=== PATIENT | male | born 1940 | race Caucasian/White ===

== ENCOUNTER 2018-06-14 19:33 | Inpatient (IN) ==
--- NOTE | 2018-06-14 20:09 | Diag Imaging Result Doc PS360 ---
CHEST-2 VIEWS - 06/14/2018 INDICATION: SOB COMPARISON: 10/22/2017 FINDINGS: The lungs are normally expanded and clear. Heart size and mediastinal contours are normal. No pneumothorax or pleural effusion. Stable sternotomy wires. IMPRESSION: Negative exam. Electronically signed by Neo Maxwell 06/14/2018 8:07 PM
[2018-06-14 20:15] LABS: BASO# 0.02 X1000 (0.0-0.2); BASO% 0.2 % (0.0-0.8); EOS# 0.01 X1000 (0.0-0.7); EOS% 0.1 % (0.0-10.0); HEMATOCRIT 47.6 % (42.0-52.0); HEMOGLOBIN 16.7 g/dL (14.0-18.0); IMM GRAN# 0.25 X1000 (0.0-0.04); IMM GRAN% 2.4 % (0.0-0.5); LYMPH# 1.01 X1000 (1.2-3.4); LYMPH% 9.5 % (20.5-51.1); MCHC 35.1 g/dL (33-37); MCV 91.2 FL (81-99); MONO# 0.87 X1000 (0.11-0.59); MONO% 8.2 % (1.7-9.3); MPV 10.3 FL (7.4-10.4); NEUT# 8.45 X1000 (1.4-6.5); NEUT% 79.6 % (42.2-75.2); PLT 173 X1000 (130-400); RBC 5.22 XMIL (4.7-6.1); RDW 13.8 % (11.5-14.5); WBC 10.61 X1000 (4.8-10.8)
[2018-06-14 20:23] LABS: INR 0.98; PROTIME 13.8 Seconds (11.0-16.0)
[2018-06-14 20:31] LABS: AGAP 15; BUN 19 mg/dL (8-22); CALCIUM 9.1 mg/dL (8.8-10.2); CHLORIDE 99 mmol/L (98-107); COSMO 293; CREATININE 1.1 mg/dL (0.7-1.2); ESTIMATED GFR > 60; GLUCOSE 331 mg/dL (70-104); POTASSIUM 3.6 mmol/L (3.5-5.1); SODIUM 139 mmol/L (136-145); TCO2 25 mmol/L (25-35)
[2018-06-14 20:34] LABS: D-DIMER 6.46 ug/mLFEU (0.0-0.52)
[2018-06-14] MEDS ORDERED: LOVENOX 1 MG/KG SUBQ ONE (20:40)
--- NOTE | 2018-06-14 20:40 | PROVIDER DOCUMENTATION ---
HPI-General Adult - General Chief Complaint: Edema Stated Complaint: POSS BLOOD CLOT RIGHT LEG Time Seen by Provider: 06/14/18 19:49 Source: patient Allergies/Adverse Reactions: Patient Allergies Allergy/AdvReac Type Severity Reaction Status Date / Time sulfamethoxazole Allergy Unknown Unknown Verified 06/14/18 21:04 [From Bactrim] trimethoprim [From Bactrim] Allergy Unknown Unknown Verified 06/14/18 21:04 Home Medications: Home Medication List Medication Instructions Recorded Confirmed Last Taken Type Finasteride [Proscar] 5 mg PO DAILY 02/12/16 06/14/18 06/13/18 History ATORVAstatin [Lipitor] 20 mg PO DAILY 09/02/16 06/14/18 06/14/18 08:30 History Losartan/Hydrochlorothiazide 1 ea PO DAILY 06/14/18 06/14/18 06/14/18 13:00 History [Hyzaar 100-12.5 Tablet] Prednisone 10 mg PO BID 06/14/18 06/14/18 06/14/18 08:30 History Sitagliptin Phos/Metformin HCl 1 ea PO BID 06/14/18 06/14/18 06/14/18 08:30 History [Janumet 50-1,000 mg Tablet] Tamsulosin [Flomax] 0.4 mg PO BID 06/14/18 06/14/18 06/14/18 08:30 History - History of Present Illness -Gen Adult Nature of Presenting Problems: Patient is a 77yo M who presents w/ c/o R leg swelling and redness that began 2 days ago. Patient reports he is concerned about a blood clot. Also reports SOB x "a few weeks." Also reports a wound to his anterior R lateral carmona for "a few weeks." Patient reports he is a diabetic. +1 R dorsalis pedis pulse and +2 pedal edema. Denies hx of blood clots. Denies fever/chills, cough, or CP. Location of Pain/Injury: reports: lower extremity Pain Radiation: reports: no radiation Quality of Pain: reports: throbbing Severity: reports: mild Onset/Duration: reports: 2 days ago Timing: reports: still present Context/Activities at Onset: reports: none Modifying Factors: improves with: nothing Associated Symptoms: reports: denies symptoms Similar Symptoms Previously?: No Recently seen or treated by another doctor?: No Review of Systems - Adult - REVIEW OF SYSTEMS - ADULT Constitutional: denies: chills, fever Eyes: reports: no symptoms reported Ears, Nose, Mouth & Throat: reports: no symptoms reported Cardiovascular: reports: edema (R pedal edema). denies: chest pain, palpitations, syncope Respiratory: reports: dyspnea on exertion, shortness of breath. denies: cough, wheezing Gastrointestinal: reports: no symptoms reported Genitourinary: reports: no symptoms reported Musculoskeletal: reports: no symptoms reported Integumentary: reports: no symptoms reported Neurological: reports: no symptoms reported Psychiatric: reports: no symptoms reported Endocrine: reports: no symptoms reported All Other Systems: Reviewed and Negative Past History - Adult - PAST MEDICAL HISTORY-ADULT Review of Records: reports: Old Records Reviewed, Nursing Assessment Review, Medications Reviewed, Social history reviewed & non-contributory. Major Childhood Illnesses: reports: denies history Cardiovascular: reports: HTN Respiratory: reports: denies history Gastrointestinal: reports: denies history Obstetrical/Gynecological: reports: denies history Genitourinary: reports: denies history Musculoskeletal: reports: denies history Neurological: reports: denies history Endocrine/Immune: reports: Diabetes Other Conditions: reports: denies history - PRIOR SURGERIES/PROCEDURES Surgical/Procedure History: reports: appendectomy, CABG, other (kidney) - IMMUNIZATION STATUS Childhood Immunizations: See Nurse Assessment Flu Vaccine: See Nurse Assessment - FAMILY HISTORY Family History: reviewed, not pertinent - SOCIAL HISTORY Smoking: non-smoker Physical Exam-General - PHYSICAL EXAM-ADULT Initial Vital Signs Reviewed: Yes - CONSTITUTIONAL General Appearance: appears well, alert, mild distress - EYES Eyes: PERRL/EOMI, pink conjunctivae - HEAD, EARS, NOSE, MOUTH & THROAT HENMT: normocephalic/atraumatic, moist mucous membranes - NECK Neck: full range of motion, supple, normal inspection - RESPIRATORY Respiratory: chest non-tender, lungs clear, normal breath sounds, no pleuratic chest pain, no respiratory distress, no accessory muscle use. negative: crackles, rales, rhonchi, stridor, wheezing, retractions, splinting - CARDIOVASCULAR Cardiovascular: no gallop, tachycardia (102). negative: no edema (R pedal edema) - MUSCULOSKELETAL Back Exam: normal inspection Extremity: normal gait, erythema (R anterior carmona), pedal edema (R +2), swelling (R lower leg/foot) Peripheral Pulses: dorsalis-pedis (R): 1+ - SKIN Integumentary: normal color, warm/dry, erythema (R carmona) - NEUROLOGIC Neurologic: grossly normal - PSYCHIATRIC Psych/Mental Status: normal mood/affect, normal thought content, normal thought process, oriented x 3 Progress - PLAN OF CARE/RESULTS Progress/Plan/Lab Results: Vital Signs - 8 hr 06/14/18 19:40 Temperature 97.6 F Pulse Rate 102 H Respiratory Rate 17 Blood Pressure 139/84 O2 Sat by Pulse Oximetry 96 Laboratory Results - last 24 hr 06/14/18 06/14/18 06/14/18 19:59 19:59 19:59 WBC 10.61 RBC 5.22 Hgb 16.7 Hct 47.6 MCV 91.2 MCH 32.0 H MCHC 35.1 RDW Std Deviation 13.8 Plt Count 173 MPV 10.3 Immature Gran % (Auto) 2.4 H Neut % (Auto) 79.6 H Lymph % (Auto) 9.[address] [place] % (Auto) 8.2 Eos % (Auto) 0.1 Baso % (Auto) 0.2 Immature Gran # (Auto) 0.25 H Neut # (Auto) 8.45 H Lymph # (Auto) 1.[address] [place] # (Auto) 0.87 H Eos # (Auto) 0.01 Baso # (Auto) 0.02 PT 13.8 INR 0.98 PTT (Actin FS) 25.0 Sodium 139 Potassium 3.6 Chloride 99 Carbon Dioxide 25 Anion Gap 15 BUN 19 Creatinine 1.1 Estimated GFR/1.73 m2 > 60 BUN/Creatinine Ratio 17 Glucose 331 H Calculated Osmolality 293 Calcium 9.1 Orders Category Date Time Status Saline Loc NOW Care 06/14/18 19:49 Active CHEST-2 VIEWS [RAD] Stat Exams 06/14/18 19:50 Completed BASIC METABOLIC PANEL [CHEM] Stat Lab 06/14/18 19:59 Completed CBC WITH ELECTRONIC DIFF [HEME] Stat Lab 06/14/18 19:59 Completed D-DIMER [COAG] Stat Lab 06/14/18 19:59 Results PROTIME WITH INR [COAG] Stat Lab 06/14/18 19:59 Results PTT [COAG] Stat Lab 06/14/18 19:59 Results EKG [EKG] Stat Ther 06/14/18 19:50 Ordered Result Diagrams: 06/14/18 19:59 06/14/18 19:59 - XRAY 1 XRAY: Bilateral XRAY Study: Chest Impression: See EMR Report ([facility] [address], [address], [place] [address] Department of Imaging Patient: GINA LEWIS Date: 06/14/18MR#: [id number] : 1940DM Status: PRE ERAcct#: [id number] Age/Sex: 77/MRoom/Bed: Loc: ED Ordering Physician: Aide Culp Family Physician: Duke Gonzalez MD Reason for Procedure: SOB Signed CHEST-2 VIEWS - 06/14/2018 INDICATION: SOB COMPARISON: 10/22/2017 FINDINGS: The lungs are normally expanded and clear. Heart size and mediastinal contours are normal. No pneumothorax or pleural effusion. Stable sternotomy wires. IMPRESSION: Negative exam. Electronically signed by Neo Maxwell 06/14/2018 8:07 PM 06/14/182006 Interpreting Physician: Neo Maxwell MD Dictated Date/Time: 06/14/182006 cc: Aide Culp; Duke Gonzalez MD) - CT/MRI 1 CT Study: Angiogram ([facility] [address], [address], [place] [address] Department of Imaging Patient: GINA LEWIS Date: 06/14/18MR#: [id number] : 1940DM Status: REG ERAcct#: [id number] Age/Sex: 77/MRoom/Bed: Loc: ED Ordering Physician: Aide Culp Family Physician: Duke Gonzalez MD Reason for Procedure: Femoral blood clot Signed CT ANGIOGRM PULMONARY ARTERIES - 06/14/2018 INDICATION: Femoral blood clot TECHNIQUE: Axial CT images were obtained after administering intravenous contrast. Coronal MIP images were generated. COMPARISON: None FINDINGS: There are a few scattered pulmonary emboli bilaterally in mainly segmental pulmonary arteries. There are CABG changes. Heart size is normal with no pericardial effusion. Upper abdominal images are unremarkable. The lungs are grossly clear. Bony structures are intact. IMPRESSION: Several bilateral pulmonary emboli. This report was discussed with RT Cheryl on 06/14/2018 at 10:00 PM and was readback. This exam was performed using automated exposure control, adjustment of mA or kV according to patient size, and/or use of iterative reconstruction technique Electronically signed by Neo Maxwell 06/14/2018 10:07 PM 06/14/182206 Interpreting Physician: Neo Maxwell MD Dict ated Date/Time: 06/14/182202 cc: Aide Culp; Duke Gonzalez MD), Thorax CT Results: See note - CONSULTS/PCP/HOSPITALIST Notification #1 *Consult/PCP/Hospitalist*: Dr. Young Time Discussed: 21:26 Reason/Comments: Admit Consult Disposition: Will see in ED (After CTA results, he will come see the patient.), Admit - CHANGE OF SHIFT REPORT (ED Provider) 1 Report Given and Care Transferred to:: [facility] Time of Transfer: 20:58 Items Pending: CT/MRI Results Departure - Departure Date of Disposition Decision: 06/14/18 Time of Disposition Decision: 21:27 DIAGNOSIS: Hyperglycemia DVT (deep venous thrombosis) Qualifiers: DVT location: lower extremity Affected thrombotic vein of extremity: femoral Ch ronicity: acute Laterality: right Qualified Code(s): I82.411 - Acute embolism and thrombosis of right femoral vein Pulmonary emboli Qualifiers: Pulmonary embolism type: unspecified Chronicity: acute Acute cor pulmonale presence: without acute cor pulmonale Qualified Code(s): I26.99 - Other pulmonary embolism without acute cor pulmonale Disposition: ADMITTED INPATIENT 09 Certified Medical Emergency: Emergent Condition: Serious Referrals and Follow-Ups: Duke Gonzalez MD [Primary Care Provider] - - Critical Care Note This patient required my direct & personal management of CC.: No Attestation - Physician/ CHLOE Attestation Patient care was provided by Advanced Practice Provider:: Yes Advanced Practice Provider:: Aide Culp Advanced Practice Provider documentation review:: The Mid-level provider documentation, treatment plan and medical decision making was reviewed by the physician who agrees with all treatment and medical decision making by the MLP. The physician spent face to face time with patient:: No Advanced Practice Provider documentation review:: Supervising physician onsite and consulted in the evaluation and care of this patient. The physician did not have a face to face encounter with the patient.
--- NOTE | 2018-06-14 20:52 | ED EKG INTERP ---
This chart was entered by Jamarcus Hernandez Scribe, acting as scribe for Rosalva Jackson MD. EKG Interpretation - EKG Time of EKG reading by physician:: 20:15 EKG Read and Signed by:: Rosalva Jackson EKG Interpretation (*Must complete 3 of following elements*): Abnormal Rate: 90 Rhythm: NSR Comments: anterior infarct, age undetermined Attestation - Physician/ CHLOE Attestation Patient care was provided by Advanced Practice Provider:: Yes Advanced Practice Provider:: Aide Culp Advanced Practice Provider documentation review:: The Mid-level provider documentation, treatment plan and medical decision making was reviewed by the physician who agrees with all treatment and medical decision making by the MLP. The physician spent face to face time with patient:: No Advanced Practice Provider documentation review:: Supervising physician onsite and consulted in the evaluation and care of this patient. The physician did not have a face to face encounter with the patient. This chart was documented by the indicated scribe, (Jamarcus Hernandez Scribe) and accurately reflects the services I performed and decisions made by me, Rosalva Jackson MD, as attested by the provider's signature.
[2018-06-14] MEDS ORDERED: LEVAQUIN 500 MG/D5W 500 MG/100 ML IVPB IV ONE (20:56)
[2018-06-14] MEDS ORDERED: LOVENOX SUBQ ONE (21:45)
--- NOTE | 2018-06-14 22:10 | Diag Imaging Result Doc PS360 ---
CT ANGIOGRM PULMONARY ARTERIES - 06/14/2018 INDICATION: Femoral blood clot TECHNIQUE: Axial CT images were obtained after administering intravenous contrast. Coronal MIP images were generated. COMPARISON: None FINDINGS: There are a few scattered pulmonary emboli bilaterally in mainly segmental pulmonary arteries. There are CABG changes. Heart size is normal with no pericardial effusion. Upper abdominal images are unremarkable. The lungs are grossly clear. Bony structures are intact. IMPRESSION: Several bilateral pulmonary emboli. This report was discussed with RT Cheryl on 06/14/2018 at 10:00 PM and was readback. This exam was performed using automated exposure control, adjustment of mA or kV according to patient size, and/or use of iterative reconstruction technique Electronically signed by Neo Maxwell 06/14/2018 10:07 PM
[2018-06-14] MEDS: LOVENOX 1 MG/KG SUBQ SCH (22:30)
--- NOTE | 2018-06-14 22:57 | HISTORY AND PHYSICAL ---
PRIMARY CARE PHYSICIAN: Dr. Leandro Garcia. CHIEF COMPLAINT: Right lower extremity edema and shortness of breath x2 weeks. HISTORY OF PRESENTING ILLNESS: A 77-year-old male with a history of diabetes mellitus type 2, rheumatoid arthritis, coronary disease, and hypertension who presented to emergency department with 2 weeks history of having shortness of breath. The patient states that over the past several days his right lower extremity was getting enlarged and painful. He was evaluated in the emergency department. He had venous Dopplers, which did show a right DVT. The patient also had imaging that did show bilateral pulmonary embolism. Due to his presenting symptoms, the patient will require admission for further management. At the time of my examination, patient denied any headache, fever, chills, nausea, vomiting, diarrhea, hemoptysis, melena, weight changes, but complained of shortness of breath and left lower extremity pain. PAST MEDICAL HISTORY: Include diabetes mellitus type 2, rheumatoid arthritis, coronary disease, hypertension. PAST SURGICAL HISTORY: Coronary bypass, appendectomy, right knee surgery. ALLERGIES: Sulfur and trimethoprim. CURRENT MEDICATIONS: Include Lipitor 20 mg p.o. daily, Proscar 5 mg p.o. daily, Hyzaar 100/12.5 mg 1 p.o. daily, prednisone 10 mg p.o. b.i.d., Janumet 50,000 mg 1 p.o. b.i.d., Flomax 0.4 mg p.o. b.i.d. SOCIAL HISTORY: No history of smoking. Admits to social alcohol use. Denies any illicit drug use. FAMILY HISTORY: No history of coronary disease. REVIEW OF SYSTEMS: Fourteen point review of systems is as in HPI. Other systems negative. PHYSICAL EXAMINATION: GENERAL: Cooperative, friendly male. He is resting comfortably. VITAL SIGNS: Temperature 97.6 degrees, pulse 102, respirations 17, blood pressure 139/84. HEENT: Atraumatic, normocephalic. Extraocular movements intact. PERRLA. NECK: No masses. CHEST: Clear to auscultation. CARDIOVASCULAR: Regular rate and rhythm. ABDOMEN: Soft. Positive bowel sounds. EXTREMITIES: RLE tender and swollen NEUROLOGIC: He is awake, alert, oriented x3. GENITOURINARY: No bladder distention. SKIN: Warm. LABORATORIES AND STUDIES: Sodium 139, potassium 3.6, chloride 99, CO2 25, BUN is 19, creatinine is 1.1, glucose is 331. WBCs 10.61, hemoglobin 16.7, hematocrit 47.6. Platelets 173,000. Pulmonary arteriogram shows several bilateral pulmonary emboli. ASSESSMENT: A 77-year-old male with a history of diabetes mellitus type 2, coronary disease, hypertension had presented to emergency department with 2-week history of intermittent shortness of breath. The patient also was having right lower extremity edema and pain. He was evaluated in the emergency department, and he had imaging done, which did show a DVT and bilateral pulmonary emboli. Subsequently, he will require admission for further management. 1. Bilateral pulmonary embolism. 2. Right deep venous thrombosis. 3. Diabetes mellitus type 2. 4. Hypertension. PLAN: 1. We will admit patient to medical floor with telemetry. 2. The patient was already started on anticoagulation with Lovenox in the ER. 3. We will discuss with patient what oral regimen to start on in the morning. 4. Monitor blood glucose closely and put patient on sliding scale insulin regimen. 5. Monitor blood pressure. Resume antihypertensive agent. 6. We will continue to follow and reassess, make further recommendation based on patient's clinical course. cc: Quentin Young MD MTDD
[2018-06-15 06:11] LABS: BASO# 0.02 X1000 (0.0-0.2); BASO% 0.2 % (0.0-0.8); EOS# 0.06 X1000 (0.0-0.7); EOS% 0.7 % (0.0-10.0); HEMATOCRIT 43.4 % (42.0-52.0); HEMOGLOBIN 15.2 g/dL (14.0-18.0); IMM GRAN% 2.5 % (0.0-0.5); LYMPH# 1.75 X1000 (1.2-3.4); LYMPH% 21.5 % (20.5-51.1); MCH 32.8 PG (27-31); MCV 93.5 FL (81-99); MONO# 0.75 X1000 (0.11-0.59); MONO% 9.2 % (1.7-9.3); MPV 10.4 FL (7.4-10.4); NEUT# 5.36 X1000 (1.4-6.5); NEUT% 65.9 % (42.2-75.2); PLT 136 X1000 (130-400); RBC 4.64 XMIL (4.7-6.1); WBC 8.14 X1000 (4.8-10.8)
[2018-06-15 06:19] LABS: AGAP 12; BUN 20 mg/dL (8-22); CALCIUM 8.5 mg/dL (8.8-10.2); CHLORIDE 102 mmol/L (98-107); COSMO 294; CREATININE 0.9 mg/dL (0.7-1.2); ESTIMATED GFR > 60; GLUCOSE 246 mg/dL (70-104); SODIUM 142 mmol/L (136-145); TCO2 28 mmol/L (25-35)
[2018-06-15 07:12] LABS: URINE SOURCE CLEAN CATCH
[2018-06-15 07:27] LABS: BILIRUBIN URINE NEGATIVE (NEGATIVE); BLOOD URINE NEGATIVE (NEGATIVE); COLOR YELLOW; GLUCOSE URINE >1000 mg/dL (NEGATIVE); KETONE URINE NEGATIVE (NEGATIVE); LEUKOCYTES URINE NEGATIVE (NEGATIVE); NITRITE URINE NEGATIVE (NEGATIVE); PH URINE 5.5; PROTEIN URINE NEGATIVE (NEGATIVE); SP GRAVITY URINE 1.032; TURBIDITY URINE CLEAR (CLEAR); UROBILINOGEN URINE NORMAL (NORMAL)
[2018-06-15 07:28] LABS: UR EPITHELIAL CELLS <10 /HPF (<10); URINE BACTERIA NEGATIVE /HPF; URINE RBC <10 /HPF (<10); URINE WBC <10 /HPF (<10)
--- NOTE | 2018-06-15 07:32 | EKG Report ---
Test Performed on : 06/14/2018 8:15:11 PM Test Reason : SOB Blood Pressure : / mmHG Vent. Rate : 090 BPM Atrial Rate : 090 BPM P-R Int : 166 ms QRS Dur : 098 ms QT Int : 362 ms P-R-T Axes : 034 -01 038 degrees QTc Int : 442 ms Normal sinus rhythm. Anterior infarct (cited on or before 22-OCT-2017) Abnormal ECG When compared with ECG of 22-OCT-2017 16:13, Questionable change in initial forces of Anterior leads Unconfirmed Result
[2018-06-15] MEDS: HYZAAR 100/12.5 MG TAB PO SCH (08:54)
[2018-06-15] MEDS: LIPITOR PO SCH (08:54)
[2018-06-15] MEDS: GLUCOPHAGE PO SCH ×2 (08:54→22:07)
[2018-06-15] MEDS: PREDNISONE PO SCH ×2 (08:54→22:08)
[2018-06-15] MEDS: PROSCAR PO SCH (08:54)
[2018-06-15] MEDS: JANUVIA PO SCH ×2 (08:54→22:08)
[2018-06-15] MEDS: FLOMAX PO SCH ×2 (08:54→22:08)
[2018-06-15] MEDS: LOVENOX SUBQ SCH ×3 (08:54→22:08)
--- NOTE | 2018-06-15 09:27 | PROGRESS NOTE ---
DATE: 06/15/2018 SUBJECTIVE: Mr. Jacinto was admitted late last night on 06/14/2018 complaining of right lower extremity edema and shortness of breath for a couple of weeks. He was found to have DVT and pulmonary thromboembolus. He has a history of coronary artery disease, rheumatoid arthritis, diabetes mellitus type 2 and hypertension. OBJECTIVE: On exam today, he was awake and alert, comfortable breathing about the same. He is comfortable at rest with dyspnea with any exertion. Temperature 97.7 degrees, pulse 70, respirations 15, and blood pressure 115/66. Pupils are equal and round. Lungs are clear anterolateral. Cardiovascular exam with regular rhythm and rate without murmur or S3. Abdomen is soft. Skin is warm and dry. LABORATORY: White count 8140, hematocrit is 43, and platelet count 136,000. Sodium 142, potassium 3.0, chloride 102, BUN 20, and creatinine 0.9. Urinalysis unremarkable. His chest x- ray from yesterday, negative exam. Lungs are normally expanded and clear. Heart size and mediastinal contours are normal. No pneumothorax or pleural effusion. Pulmonary arteriogram with several bilateral pulmonary emboli. ASSESSMENT AND PLAN: 1. DVT. Multiple pulmonary emboli. Continue anticoagulant. He will need to be on long-term anticoagulant. He will be here 3 days. Minimize getting up. He does want to get up and go to the bathroom, and refuses to use a bed cline. 2. Deep right venous thrombosis. 3. Diabetes mellitus type 2. Follow sugars. 4. Hypertension. 5. Coronary artery disease. 6. He has had adrenal insufficiency, and has been on a cortisone. He is on prednisone 10 mg b.i.d. He is on Lovenox 90 mg subcu q.12h, Proscar 5 mg a day, Lipitor 20 mg a day, and Januvia 50 mg b.i.d. He is getting his metformin 1000 mg. b.i.d. cc: Duke Gonzalez MD
[2018-06-16] MEDS: MELATONIN PO SCH ×2 (00:34→20:53)
[2018-06-16] MEDS: LIPITOR PO SCH (08:56)
[2018-06-16] MEDS: GLUCOPHAGE PO SCH ×2 (08:56→20:53)
[2018-06-16] MEDS: HYZAAR 100/12.5 MG TAB PO SCH (08:56)
[2018-06-16] MEDS: PROSCAR PO SCH (08:56)
[2018-06-16] MEDS: PREDNISONE PO SCH ×2 (08:56→20:53)
[2018-06-16] MEDS: FLOMAX PO SCH ×2 (08:56→20:53)
[2018-06-16] MEDS: JANUVIA PO SCH ×2 (08:56→20:53)
[2018-06-16] MEDS: LOVENOX SUBQ SCH ×3 (08:59→23:54)
--- NOTE | 2018-06-16 09:08 | PROGRESS NOTE ---
DATE: 06/16/2018 SUBJECTIVE: Mr. Jacinto had a good night. He is comfortable at rest. His right leg swelling has gone down. He is eating well. Bowels are moving. OBJECTIVE: Vital Signs: Temperature 97.8 degrees, pulse 76, respirations 15, blood pressure 99/50. Eyes: Pupils are equal and round. Lungs: Clear in all lung arboleda. Cardiovascular exam: Regular rhythm and rate without murmur or S3. Abdomen: Soft. Skin: Warm and dry. Extremities: He has chronic venous stasis discoloration of both legs. Trace edema in both legs, but appears to be symmetrical, and areas of ecchymosis on his arms and legs that are chronic. His blood sugars: The last three are 195, 323 and 211. ASSESSMENT/PLAN: 1. Deep vein thrombosis, bilateral multiple small pulmonary thromboembolisms. Continue his Lovenox. He will probably be here another 2 days. I want to keep him in the bed and continue anticoagulation. Plan is probably to put him on Xarelto on discharge. 2. Diabetes mellitus type 2. He is on Januvia 50 mg twice a day. He is on Flomax 0.4 mg twice daily, metformin 1000 mg twice daily, Proscar 5 mg a day, Lovenox 90 mg subcutaneous every 12 hours, Lipitor 20 mg daily, melatonin 10 mg a day. 3. Benign prostatic hypertrophy. 4. Underlying coronary artery disease. Review of his echocardiogram on 08/17/2017: He had good left ventricular function, ejection fraction 60%. 5. 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 He is on prednisone 10 mg twice daily as he did have symptomatic adrenal insufficiency. Review of his orders: Melatonin 10 mg at bedtime, Lipitor 20 mg daily, Lovenox 90 mg subcutaneous q. 12 hours, Proscar 5 mg a day, Hyzaar 1 a day, metformin 1000 mg b.i.d., prednisone 10 mg twice a day, Januvia 50 mg b.i.d. and Flomax 0.4 mg b.i.d. I will go up on the Januvia to 100 mg twice a day. cc: Duke Gonzalez MD
[2018-06-17] MEDS: LIPITOR PO SCH (09:21)
[2018-06-17] MEDS: LOVENOX SUBQ SCH ×2 (09:21→22:00)
[2018-06-17] MEDS: PROSCAR PO SCH (09:21)
[2018-06-17] MEDS: HYZAAR 100/12.5 MG TAB PO SCH (09:21)
[2018-06-17] MEDS: GLUCOPHAGE PO SCH ×2 (09:21→20:19)
[2018-06-17] MEDS: FLOMAX PO SCH ×2 (09:21→20:20)
[2018-06-17] MEDS: PREDNISONE PO SCH ×2 (09:21→20:19)
[2018-06-17] MEDS: JANUVIA PO SCH ×2 (09:22→20:19)
--- NOTE | 2018-06-17 09:50 | PROGRESS NOTE ---
DATE: 06/17/2018 SUBJECTIVE: Mr. Jacinto is feeling much better. He would like to get up and get a shower. Breathing is comfortable, particularly at rest. Of course, he has not done anything to exert himself. OBJECTIVE: Vital Signs: Temperature 98.2 degrees, pulse 68, respirations 18, blood pressure 114/69. Eyes: Pupils are equal and round. Lungs: Clear in all lung arboleda. Cardiovascular exam: Regular rhythm and rate without murmur or S3. Abdomen: Soft. Skin: Skin is warm and dry. : Urine output is 1200 mL. Blood sugar 211, 222 and 239. ASSESSMENT AND PLAN: 1. Deep venous thrombosis, bilateral multiple small pulmonary thromboemboli. Continue Lovenox. I think he will be on pace to go home tomorrow. Plan to start him on Xarelto. We will probably give him 15 mg twice a day for 21 days, and then go to 20 mg daily. 2. Diabetes mellitus type 2. I did go up on his Januvia from 50 to 100 mg twice a day. Blood sugars still running around 200s, so continue pattern sugars. 3. Benign prostatic hypertrophy. 4. History of underlying coronary artery disease. Echocardiogram 08/17/2017 showed good left ventricular function. 5. Adrenal insufficiency. Continue his daily prednisone. Looking at blood sugars; last 3 are 222, 282 and 239. cc: Duke Gonzalez MD
[2018-06-17] MEDS: MELATONIN PO SCH ×2 (20:19→20:20)
--- NOTE | 2018-06-18 07:10 | DISCHARGE SUMMARY ---
ADMISSION DATE: 06/14/2018 DISCHARGE DATE: 06/18/2018 HISTORY OF PRESENT ILLNESS: He presented on 06/14/2018 complaining of right lower extremity edema and shortness of breath for a couple weeks. A 77-year-old with a history of diabetes mellitus type 2, rheumatoid arthritis, coronary artery disease, hypertension. Presented to the emergency room with a 2 week history of having shortness of breath. States that for the past several days, his right lower extremity in his calf became enlarged and painful. HOSPITAL COURSE: The patient was evaluated in the emergency department. Had venous Dopplers that showed right DVT. Had CT angiogram which showed bilateral pulmonary embolism. He was admitted with pulmonary embolism. He was put on Lovenox. Plan was to keep him for 3 days and then convert him to Xarelto. He did not have a saddle embolus but he had bilateral embolisms, both sides, with symptomatic dyspnea. He tolerated this well. The right leg did go down in swelling and I did adjust his Cymbalta, for his sugar. He is on Lipitor 20 mg a day, Proscar 5 mg a day, Hyzaar 100/12.5 daily, melatonin 10 mg at bedtime, Glucophage 1000 mg b.i.d., prednisone 10 mg b.i.d., Januvia 100 mg b.i.d., and Flomax 0.4 mg b.i.d. I will put him on Xarelto 15 mg twice a day for 21 days and then 20 mg a day following that. Follow back in my office in a couple weeks. cc: Duke Gonzalez MD
[2018-06-18] MEDS: LIPITOR PO SCH (09:18)
[2018-06-18] MEDS: GLUCOPHAGE PO SCH (09:18)
[2018-06-18] MEDS: PROSCAR PO SCH (09:18)
[2018-06-18] MEDS: FLOMAX PO SCH (09:18)
[2018-06-18] MEDS: LOVENOX SUBQ SCH (09:19)
[2018-06-18] MEDS: HYZAAR 100/12.5 MG TAB PO SCH (09:19)
[2018-06-18] MEDS: PREDNISONE PO SCH (09:19)
[2018-06-18] MEDS: JANUVIA PO SCH (09:19)
[2018-06-18 15:36] VITALS: BP 125/64
--- NOTE | 2018-06-18 16:03 | Extremity Venous Study ---
PROCEDURE NAME: Venous U/S Right Leg - 06/14/2018 DYE COLORIST FORMULATOR: Alex. REQUESTING PHYSICIAN: Emiliano MCGINNIS. INDICATIONS: Swelling and pain. FINDINGS: In the right lower extremity, there is an extensive DVT starting at the common femoral vein and extending distally. There is some mobile component to the common femoral vein, although there is diminished flow. There is patency in the common femoral vein but there is significantly diminished and even absent flow noted more distally at the superficial femoral and popliteal location. SUMMARY: Extensive deep venous thrombosis in the right lower extremity. cc: MD Duke Chan MD
== END 2018-06-18 16:22 | disposition home or self-care (01) | DRG 176 ==
LOC: ED 19:33 → SUATTDRO 23:01 → EDIPHOLD 23:01 → 3S 06-15 01:39
PROVIDERS: ADMIT Emergency Medicine; ATTEND Emergency Medicine
CPT/HCPCS: 71020; 71046; 71275; 80048; 81001; 82948; 85025; 85379; 85610; 85730; 93005; 93971; 96372; 99285; A9270; J1650; J7506; J7512; Q9967; S0138; XXXXX

== ENCOUNTER 2018-08-22 15:19 | Observation (INO) ==
[2018-08-22] MEDS ORDERED: TYLENOL PO PRN (17:16)
[2018-08-22] MEDS ORDERED: ZOFRAN IV PRN (17:16)
[2018-08-22 17:38] LABS: BASO# 0.01 X1000 (0.0-0.2); BASO% 0.1 % (0.0-0.8); EOS# 0.02 X1000 (0.0-0.7); EOS% 0.2 % (0.0-10.0); IMM GRAN# 0.15 X1000 (0.0-0.04); IMM GRAN% 1.5 % (0.0-0.5); LYMPH# 1.28 X1000 (1.2-3.4); LYMPH% 12.8 % (20.5-51.1); MCHC 34.9 g/dL (33-37); MCV 94.5 FL (81-99); MONO# 0.98 X1000 (0.11-0.59); MONO% 9.8 % (1.7-9.3); NEUT# 7.54 X1000 (1.4-6.5); NEUT% 75.6 % (42.2-75.2); PLT 179 X1000 (130-400); RBC 4.55 XMIL (4.7-6.1); RDW 13.3 % (11.5-14.5); WBC 9.98 X1000 (4.8-10.8)
--- NOTE | 2018-08-22 17:51 | HISTORY AND PHYSICAL ---
HISTORY OF PRESENT ILLNESS: He started having swelling 3 or 4 days ago in his right lower leg, intense redness and pain with some bullae and some weeping. He has really circumferential redness and irritation and tenderness around that leg consistent with cellulitis. So, admitted him to the hospital. PAST MEDICAL HISTORY: 1. Diabetes mellitus type 2. His sugars of late have been running fairly high. 2. Rheumatoid arthritis. 3. Coronary artery disease. 4. He has had adrenal insufficiency. PAST SURGICAL HISTORY: 1. Status post coronary bypass. 2. Appendectomy. 3. Right knee surgery. ALLERGIES: Sulfa and trimethoprim. SOCIAL HISTORY: No history of smoking. Rare, social alcohol at this point. He has cut back on drinking quite a bit. Denies any illicit drug use. FAMILY HISTORY: No history of coronary artery disease. I think there is a history of hypertension. REVIEW OF SYSTEMS: General: No weight gain or loss. No fever or chills, although he has felt subjective fever and some rigors last night. HEENT: No change in visual or hearing acuity. Respiratory: No increased work of breathing or dyspnea. Cardiovascular: No chest pain or tachy palpitation. GI and : No gross hematuria or dysuria. Musculoskeletal/Neurologic: No significant complaints. Endocrinologic/Hematologic: No significant history. Skin: As noted above, right lower extremity appears red and irritated and painful. PHYSICAL EXAMINATION: GENERAL: On presentation, well-developed, well-nourished white male. HEENT: Pupils are equal and round. NECK: Supple without cervical adenopathy or supraclavicular adenopathy. LUNGS: Clear in all lung arboleda. CARDIOVASCULAR: Regular rhythm and rate without murmur or S3. ABDOMEN: Soft, nondistended, nontender. SKIN: Warm and dry. EXTREMITIES: Right leg with edema, bullae about 3 x 6 cm in the posterior lower leg, circumferential erythema, redness, irritation, tenderness in that right leg. No palpable cords. ASSESSMENT AND PLAN: 1. Cellulitis of the lower leg. He has been on Xarelto. I doubt he has a DVT. We will check noninvasive studies of both lower extremities. I am going to put him on broad coverage for gram-negative as well as gram-positive organisms, vancomycin and Zosyn. Will elevate the leg. I do not see any sign of deep tissue infection at this time. 2. Diabetes mellitus type 2. Will follow blood sugars and adjust his regimen. He says his sugars have been running a little high. 3. History of coronary artery disease status post coronary artery bypass graft. Aware. 4. History of rheumatoid arthritis. 5. He has had some adrenal insufficiency, so I have kept him on prednisone and we might be able to taper that down at this point, slowly. cc: Duke Gonzalez MD
[2018-08-22 17:52] LABS: INR 0.98; PROTIME 13.7 Seconds (11.0-16.0)
[2018-08-22 17:53] LABS: PTT 28.7 Seconds (22.3-41.8)
[2018-08-22] MEDS: ZOSYN 3.375 GM in NS 50 ML IV SCH (18:00)
[2018-08-22 18:05] LABS: ALB/GLOB RATIO 1.7; ALBUMIN 3.8 g/dL (3.5-5.0); CALCIUM 9.3 mg/dL (8.8-10.2); CREATININE 1.4 mg/dL (0.7-1.2); MAGNESIUM 1.7 mg/dL (1.5-2.7); POTASSIUM 3.1 mmol/L (3.5-5.1); TOTAL BILIRUBIN 1.58 mg/dL (0.20-1.00); TOTAL PROTEIN 6.1 g/dL (6.3-8.3)
[2018-08-22] MEDS: JANUVIA PO SCH (21:45)
[2018-08-22] MEDS: FLOMAX PO SCH (21:45)
[2018-08-22] MEDS: GLUCOPHAGE PO SCH (21:45)
[2018-08-22] MEDS: PREDNISONE PO SCH (21:45)
[2018-08-22] MEDS: LIPITOR PO SCH (21:45)
[2018-08-23] MEDS: ZOSYN 3.375 GM in NS 50 ML IV SCH ×7 (00:16→23:17)
--- NOTE | 2018-08-23 06:55 | EKG Report ---
Test Performed on : 08/22/2018 5:34:25 PM Test Reason : chest pain Blood Pressure : / mmHG Vent. Rate : 099 BPM Atrial Rate : 099 BPM P-R Int : 162 ms QRS Dur : 102 ms QT Int : 348 ms P-R-T Axes : 048 -09 054 degrees QTc Int : 446 ms Normal sinus rhythm. Normal ECG When compared with ECG of 14-JUN-2018 20:15, Criteria for Anterior infarct are no longer present Confirmed by Jcarlos Meza MD ([id number]) on 08/23/2018 5:47:29 PM
[2018-08-23] MEDS: PROSCAR PO SCH (08:14)
[2018-08-23] MEDS: XARELTO PO SCH (08:14)
[2018-08-23] MEDS: GLUCOPHAGE PO SCH ×2 (08:14→16:01)
[2018-08-23] MEDS: PREDNISONE PO SCH ×2 (08:14→23:18)
[2018-08-23] MEDS: JANUVIA PO SCH ×2 (08:14→23:18)
[2018-08-23] MEDS: FLOMAX PO SCH ×2 (08:14→23:18)
[2018-08-23] MEDS: HYZAAR 100/12.5 MG TAB PO SCH (08:35)
[2018-08-23] MEDS ORDERED: VANCOMYCIN IV PER PHARMACY MISC SCH (10:30)
--- NOTE | 2018-08-23 10:42 | PROGRESS NOTE ---
DATE: 08/23/2018 SUBJECTIVE: Mr. Jacinto's leg is much better. It is a lot softer, less tender on noninvasive study. Still has a little bit of residual clot in the popliteal on the right side, but the proximal clot has resolved. He is feeling better. OBJECTIVE: Vital Signs: Remains afebrile. Pulse 72, respirations 20, blood pressure 110/58. Eyes: Pupils are equal and round. Lungs: Clear in all lung arboleda. Cardiovascular exam: Regular rhythm and rate without murmur or S3. : Urine output is 5600 mL. ASSESSMENT AND PLAN: 1. Right lower extremity pedal edema, underlying deep vein thrombosis which is old and actually improving, and cellulitis which is improved with present antibiotics. We will keep him another 24 hours. I do want to watch his blood sugars and see if we can get them controlled a little better. Renal function looks good. Creatinine 1.4. We will supplement some potassium. 2. History of coronary artery disease status post coronary artery bypass graft. 3. History of benign prostatic hypertrophy. Continue his Proscar 5 mg a day, metformin 1000 mg twice daily, prednisone 10 mg twice daily, Xarelto 20 mg daily, Januvia that I am going to have him on 100 mg twice daily, Flomax 0.4 mg twice daily. I have him on Zosyn 3.375 g daily, and I want to make sure he is on vancomycin as well. cc: Duke Gonzalez MD
--- NOTE | 2018-08-23 11:54 | Diag Imaging Result Doc PS360 ---
CHEST-2 VIEWS - 08/23/2018 INDICATION: Cellulitis COMPARISON: 06/14/2018 FINDINGS: Lung volumes are severely low similar to prior. No infiltrates or edema. No pneumothorax or pleural effusion. Heart size and pulmonary vascularity are normal. Stable sternotomy wires. IMPRESSION: Severely low lung volumes. Electronically signed by Neo Maxwell 08/23/2018 11:51 AM
[2018-08-23] MEDS ORDERED: VANCOMYCIN 2 GM in NS 500 ML IV ONE (12:00)
[2018-08-23] MEDS: LIPITOR PO SCH (23:18)
[2018-08-24] MEDS: ZOSYN 3.375 GM in NS 50 ML IV SCH (05:56)
[2018-08-24 08:23] VITALS: BP 126/58
[2018-08-24] MEDS: XARELTO PO SCH (08:58)
[2018-08-24] MEDS: JANUVIA PO SCH (08:58)
[2018-08-24] MEDS: GLUCOPHAGE PO SCH (08:58)
[2018-08-24] MEDS: PROSCAR PO SCH (08:58)
[2018-08-24] MEDS: PREDNISONE PO SCH (08:58)
[2018-08-24] MEDS: HYZAAR 100/12.5 MG TAB PO SCH (08:58)
[2018-08-24] MEDS: FLOMAX PO SCH (08:58)
--- NOTE | 2018-08-24 09:15 | Extremity Venous Study ---
PROCEDURE NAME: Venous U/S Bilateral Legs - 08/23/2018 PROCEDURE: Bilateral lower extremity venous duplex and color flow imaging. EQUIPMENT: [employer] E 9 ultrasound system with a 9 L-D transducer. DATE OF STUDY: 08/23/2018. REFERRING PHYSICIAN: Dr. Gonzalez. PATIENT PROFILE: A 77-year-old male. SORT SUPERVISOR: Sandra Arthur RVT. INDICATIONS: History of right lower extremity deep venous thrombosis. FINDINGS: The right common femoral vein and its branches, deep and superficial femoral veins were satisfactorily imaged. In the mid to distal femoral vein, there appeared to be a chronic deep venous thrombosis that extended distally into the popliteal vein. There was some flow through these veins. The small deep veins below the right knee were compressible. Superficial veins of the right lower extremity were compressible throughout their length. The left common femoral vein and its branches, deep and superficial femoral veins were also satisfactorily imaged. They had flow through them and were compressible. Left popliteal vein and the deep veins below the left knee were all compressible and had flow through them. The superficial veins of the left lower extremity were compressible throughout their length. 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 There did appear to be some improvement when compared to a previous study performed right lower extremity. cc: MD Duke Ramirez MD
--- NOTE | 2018-08-24 09:25 | DISCHARGE SUMMARY ---
ADMISSION DATE: 08/22/2018 DISCHARGE DATE: 08/24/2018 HISTORY OF PRESENT ILLNESS: This is a patient of mine having swelling for 3 or 4 days in the right leg, intense redness with some bullae, particularly in the posterior leg, and some weeping of fluid. He had circumferential redness around the lower extremity, very tender, and irritated, consistent with cellulitis. I did not see any soft tissue infection. PAST MEDICAL HISTORY: 1. Diabetes mellitus type 2. 2. Rheumatoid arthritis. 3. Coronary artery disease. 4. He has had a history of adrenal insufficiency from prolonged prednisone intake. PAST SURGICAL HISTORY: 1. Status post coronary artery bypass graft. 2. Appendectomy. 3. Right knee surgery. ALLERGIES: Sulfa and trimethoprim. HOSPITAL COURSE: Admitted. Put on Zosyn and vancomycin. Then he showed pretty quick improvement. Elevated his right leg. He is already on rivaroxaban 20 mg daily for his atrial fibrillation and he showed steady improvement. We did a noninvasive of the right leg. It shows improvement with diminished deep venous thrombosis but he had some chronic venous thrombosis in the lower leg. His blood sugars seem to do well and they remained around the 200s, 216 to 272. I am going to let him go home on 08/24/2018 on Lipitor 20 mg a day, Proscar 5 mg daily, Hyzaar which is lower losartan/ hydrochlorothiazide 1 a day, metformin 1000 mg b.i.d., prednisone 20 mg b.i.d., Xarelto 20 mg a day, Januvia 100 mg b.i.d., Flomax 0.4 mg b.i.d., and I will stop his antibiotics. I want him to elevate that leg and I want him to take it easy for the next 3 or 4 days. I want him to wear stockings on both legs, the lower extremities, daily. cc: Duke Gonzalez MD
[2018-08-24] MEDS ORDERED: VANCOMYCIN 1.7 GM in NS 250 ML IV SCH (12:00)
== END 2018-08-24 10:56 | disposition home or self-care (01) ==
LOC: INTOOBSV 15:19 → DIRADM 15:19 → 4N 16:07
PROVIDERS: ADMIT Emergency Medicine; ATTEND Emergency Medicine
CPT/HCPCS: 71020; 71046; 80053; 82550; 82948; 83735; 84443; 84484; 85025; 85610; 85730; 93005; 93010; 93970; A9270; J2543; J3370; J7040; J7506; J7512; S0138; XXXXX